=== PATIENT | female | born 1990 | race Hispanic/Latino ===

== ENCOUNTER 2022-08-02 14:56 | Emergency (ER) | payer OTHER ==
[~2022-08-02] VITALS: Ht 152.4 cm; Wt 57.2 kg
[2022-08-02 15:44] VITALS: BP 120/80
[2022-08-02] MEDS ORDERED: ERYTHROMYCIN BASE 0.5% OPHTH OINT 1 GM TUBE OU SCH (18:00)
[2022-08-02] MEDS ORDERED: ERYT1OIN7 OP (18:04)
== END 2022-08-02 18:12 | disposition home or self-care (01) ==
LOC: EDH 14:56
DX: H10.9 Unspecified conjunctivitis (principal)